=== PATIENT | female | born 1955 | race Caucasian/White ===

== ENCOUNTER → 2020-01-06 | Outpatient (CLI) | payer OTHER ==
[~2020-01-06] MED LIST: ALLERGY SHOTS; EST.625T PO; FENO135C PO; LISI1TAB PO; SIMV40TA4 PO
--- NOTE | 2020-01-06 11:29 | Diagnostic Imaging Report ---
INDICATION: Fall, pain. COMPARISON: Imaging from same date. TECHNIQUE: 3 radiographs of left wrist dated 01/06/2020. FINDINGS: No acute fracture or dislocation. No destructive osseous process. Carpal alignment is well maintained. Scapholunate distances within normal limits. No suspicious radiopaque foreign body. IMPRESSION: No acute osseous abnormality. Dictated by: Dictated on workstation # [id number]
--- NOTE | 2020-01-06 11:35 | Diagnostic Imaging Report ---
INDICATION: Injury to left hand. TECHNIQUE: Three views of the left hand. CORRELATION STUDY: None FINDINGS: There is no acute fracture or dislocation of the left hand. Joint spaces are maintained. May be mild cystic change the base of the proximal phalanx 4th digit. Soft tissues are unremarkable. IMPRESSION: 1. Negative for acute bony abnormality of the hand. Dictated by: Dictated on workstation # [id number]
== END ==
LOC: RAD FS 10:34
PROVIDERS: ATTEND Nurse Practitioner
DX: S69.92XA Unspecified injury of left wrist, hand and finger(s), initial encounter (principal); W19.XXXA Unspecified fall, initial encounter
CPT/HCPCS: 73110; 73130